=== PATIENT | female | born 1950 | race Caucasian/White ===

== ENCOUNTER 2019-02-20 07:01 | Outpatient (CLI) | payer SELFPAY ==
[~2019-02-20 07:01] MED LIST: ASPI81TA52 PO; ATOR40TA71 PO; LOSA1TAB36 PO; NITR0.4T SL; VENL37.55 PO; [UNRECOGNIZED DRUG - CODE] PO
== END 2019-02-20 23:59 | disposition home or self-care (01) ==
LOC: HW VAS 07:01
DX: Z13.6 Encounter for screening for cardiovascular disorders (principal)

== ENCOUNTER 2020-01-11 10:36 | Day surgery (SDC) | payer MEDICARE, OTHER ==
[2020-01-08 11:42] LABS: BASOPHILS # (AUTO) 0.1 X10'3 (0-0.2); BASOPHILS % (AUTO) 0.4 % (0-1); EOSINOPHILS # (AUTO) 0.3 X10'3 (0-0.9); MEAN PLATELET VOLUME 7.2 FL (7.4-10.4); PRE OP HEMOGLOBIN 14.1 g/dL (12.0-16.0)
[2020-01-08 11:44] LABS: EOSINOPHILS % (AUTO) 1.6 % (0-6); MEAN CORPUSCULAR HEMOGLOBIN 31.4 PG (27.0-31.0); MEAN CORPUSCULAR HGB CONC 34.2 g/dL (33.0-36.5); MEAN CORPUSCULAR VOLUME 91.7 FL (78-98); MONOCYTES # (AUTO) 0.6 X10'3 (0-0.9); MONOCYTES % (AUTO) 3.5 % (2-12); NEUTROPHILS # (AUTO) 5.4 X10'3 (1.8-7.7); NEUTROPHILS % (AUTO) 29.5 % (42-75); PRE OP HEMATOCRIT 41.3 % (35.0-45.0); PRE OP PLATELET COUNT 277 X10'3 (140-440); RED CELL DISTRIBUTION WIDTH 13.3 % (11.5-14.5)
[2020-01-08 11:54] LABS: PRE OP PROTIME 10.3 SECONDS (9.0-12.0)
[2020-01-08 11:58] LABS: ALBUMIN 4.2 G/DL (3.4-5.0); ALBUMIN/GLOBULIN RATIO 1.3 (1.1-1.5); ALKALINE PHOSPHATASE 62 IU/L (46-116); BLOOD UREA NITROGEN 20 MG/DL (7-18); BUN/CREATININE RATIO 22.5 (6.6-38.0); CHLORIDE 104 MMOL/L (99-107); CREATININE 0.89 MG/DL (0.40-0.90); PRE OP ALT 34 U/L (30-65); PRE OP ANION GAP 9 (8-16); PRE OP AST 19 U/L (10-37); PRE OP BILIRUB, TOTAL 0.6 MG/DL (0.0-1.0); PRE OP GLUCOSE 126 MG/DL (70-104); PRE OP POTASSIUM 3.5 MMOL/L (3.4-5.1); PRE OP SODIUM 140 MMOL/L (135-145); TOTAL CARBON DIOXIDE 26.8 MMOL/L (24-32); TOTAL PROTEIN 7.4 G/DL (6.4-8.2); eGFR 63 ML/MIN
[2020-01-08 13:51] LABS: PLATELET ESTIMATE NORMAL; TOTAL CELLS COUNTED 100
[2020-01-08 13:52] LABS: SMUDGE CELLS 1+
[~2020-01-11] VITALS: Ht 160 cm; Wt 70.3 kg
[2020-01-11] VITALS (18 sets, daily range): BP systolic 118–180; BP diastolic 30–94
[~2020-01-11 10:36] MED LIST changes: +CALC300T4 PO; +CYAN100070 PO; -NITR0.4T SL; +VANCOMYCIN INJ 1000 MG in NORMAL SALINE 250ml IV.SOLN IV ONE; +VITA1TAB97 PO; -[UNRECOGNIZED DRUG - CODE] PO; +ceFAZolin 2gm in dextrose, iso 50 ML IV ONE; +cefazolin/dext.iso 2gm/100ml 100 ML IV ONE; +famotidine 20mg tablet PO ONE
[2020-01-11] MEDS: ringers solution, lacted 1,000 ML IV SCH ×2 (11:35→17:32)
[2020-01-11] MEDS ORDERED: scopolamine 1.5mg patch.TD72 TD ONE (11:40)
[2020-01-11] MEDS ORDERED: midazolam 2 mg/2 ml injection ONE (12:20)
[2020-01-11] MEDS ORDERED: fentaNYL /PF 50mcg/ml 5ml ampule ONE (12:20)
[2020-01-11] MEDS ORDERED: sevoflurane 250ml liquid IH ONE (12:26)
[2020-01-11] MEDS ORDERED: ringers solution, lacted 1,000 ML IV SCH (13:07)
[2020-01-11] MEDS ORDERED: morphine 2 MG/ML inj. syringe IV PRN (13:10)
[2020-01-11] MEDS ORDERED: ondansetron/PF 4mg/2ml inj IV PRN ×2 (13:10→15:05)
[2020-01-11] MEDS ORDERED: proCHLORperazine 10 MG/2 ml inj IV PRN (13:10)
[2020-01-11] MEDS ORDERED: morphine 4 MG/ML inj SYRINge IV PRN (13:10)
[2020-01-11] MEDS ORDERED: meperidine/PF 25mg/ml syringe IV PRN ×2 (13:10)
[2020-01-11] MEDS ORDERED: BUPIVAcaine/PF 2.5 mg/ml (0.25%) 30ml vial ONE (14:12)
--- NOTE | 2020-01-11 14:32 | NUR ---
Received from OR via ortho bed, accompanied by Anesthesiologist Jv and report given by Anesthesiolgist. Mask to 10L, sats 100%, 20G to right hand and LR at 100cc/hr running. Soft splint and donna wrap to right foot, toes partially exposed good cap refill. VS WNL. Will continue to monitor.
[2020-01-11] MEDS ORDERED: dexamethasone sod phosphate 4mg/ml inj. ONE (14:43)
[2020-01-11] MEDS ORDERED: ondansetron/PF 4mg/2ml inj ONE (14:43)
[2020-01-11] MEDS ORDERED: neostigmine methylsulfate 1 MG/ML 10ml vial ONE (14:43)
[2020-01-11] MEDS ORDERED: rocuronium 10mg/ml inj IV ONE (14:43)
[2020-01-11] MEDS ORDERED: glycopyrrolate 0.2mg/ml inj ONE (14:43)
[2020-01-11] MEDS ORDERED: acetaminophen 1,000mg/100ml IV 100 ML IV ONE (14:43)
[2020-01-11] MEDS ORDERED: propofol inj 20 ML IV ONE (14:43)
[2020-01-11] MEDS ORDERED: LIDOcaine 2% (20mg/ml) 5ml vial ONE (14:43)
[2020-01-11] MEDS: meperidine/PF 25mg/ml syringe IV PRN ×2 (15:00→15:21)
[2020-01-11] MEDS ORDERED: potassium Cl 20mEq in NS 1,000 ML IV SCH (15:04)
[2020-01-11] MEDS ORDERED: acetaminophen 325mg tablet PO PRN (15:05)
[2020-01-11] MEDS ORDERED: magnesium hydroxide 30ml (MOM) UD suspension PO PRN (15:05)
[2020-01-11] MEDS ORDERED: HYDROcodone/acetaminophen 10/325mg tab PO PRN ×2 (15:05)
[2020-01-11] MEDS ORDERED: bisacodyl 10mg suppository rectal RC PRN (15:05)
[2020-01-11] MEDS ORDERED: HYDROmorphone inj. 0.5 MG/0.5 ML DISP.SYRIN IV PRN (15:05)
[2020-01-11] MEDS ORDERED: diphenhydrAMINE 25mg capsule PO PRN ×2 (15:05)
--- NOTE | 2020-01-11 16:12 | NUR ---
Report called to receiving nurse. Transferred via surgical bed. Belongings sent with patient (one bag only including cell phone). Special Issues communicated to receiving nurse Ana RUTHERFORD on phone during report. Pt alert and oriented aware of transfer. Post op VS stable. Pt states she still has good sensation to exposed toes on right foot.
[2020-01-11] MEDS: HYDROcodone/acetaminophen 5mg/325mg tablet PO PRN (17:31)
--- NOTE | 2020-01-11 18:15 | NUR ---
Patient in room [facility]. I have received report from Ana RUTHERFORD and had the opportunity to ask questions and assume patient care.
[2020-01-11] MEDS: ceFAZolin 1GM/D5W- ADD-VANTAGE 50 ML IV SCH (19:56)
[2020-01-11] MEDS ORDERED: vancomycin/NS 1 GM ADD-VANTAGE 250 ML IV SCH (20:00)
[2020-01-11] MEDS ORDERED: sennosides 8.6mg tablet PO SCH (21:00)
--- NOTE | 2020-01-11 22:00 | NUR ---
Paged Dr. Valdez for Toradol order.
[2020-01-11] MEDS: ketorolac tromethamine 15mg/ml inj. IV PRN (23:03)
[2020-01-12] VITALS: BP 100/52
[2020-01-12] MEDS: ceFAZolin 1GM/D5W- ADD-VANTAGE 50 ML IV SCH (00:10)
[2020-01-12] MEDS: HYDROcodone/acetaminophen 5mg/325mg tablet PO PRN (04:09)
[2020-01-12] MEDS: ketorolac tromethamine 15mg/ml inj. IV PRN (05:05)
--- NOTE | 2020-01-12 06:13 | NUR ---
Problems reprioritized. Patient report given, questions answered & plan of care reviewed with Lu RUTHERFORD.
--- NOTE | 2020-01-12 06:29 | NUR ---
Patient in room [facility]. I have received report from Milly RUTHERFORD and had the opportunity to ask questions and assume patient care.
[2020-01-12] MEDS ORDERED: losartan 50mg tablet PO SCH (08:00)
[2020-01-12] MEDS ORDERED: venlafaxine XR 37.5mg cap (Q24H) PO SCH (08:00)
[2020-01-12] MEDS ORDERED: aspirin 81mg tablet.DR PO SCH (08:00)
[2020-01-12] MEDS ORDERED: HYDROchlorothiazide 12.5mg capsule PO SCH (08:00)
--- NOTE | 2020-01-12 09:03 | NUR ---
Patient stable for discharge home today. Patient worked with physical therapy and was cleared safe fore discharge home today. Discharge was inputted by Dr. Valdez for this morning if cleared by Physical Therapy. All discharge instructions given to patient and questions answered. IV removed with cannula intact. All belongings sent home with patient.
== END 2020-01-12 08:30 | disposition home or self-care (01) ==
LOC: PAS 10:36 → SUR 3N 15:04 → PAS 01-12 08:30
PROVIDERS: ATTEND Orthopaedic Surgery
DX: S82.841A Displaced bimalleolar fracture of right lower leg, initial encounter for closed fracture (principal); S93.431A Sprain of tibiofibular ligament of right ankle, initial encounter; I10 Essential (primary) hypertension; Z90.710 Acquired absence of both cervix and uterus; Z98.890 Other specified postprocedural states; Z79.899 Other long term (current) drug therapy; W01.0XXA Fall on same level from slipping, tripping and stumbling without subsequent striking against object, initial encounter; Y93.89 Activity, other specified; Y92.89 Other specified places as the place of occurrence of the external cause; Y99.8 Other external cause status; Z11.59 Encounter for screening for other viral diseases
CPT/HCPCS: 27792; 27829; 36415; 80053; 85025; 85610; 85730; 87635; 93005; 97161; 97530; A6223; C1713; J0131; J0690; J1100; J1885; J2001; J2175; J2250; J2270; J2405; J2704; J2710; J3010; J3370; J3480; J3490; A4618; A6449; A7000; G0378; J7120